=== PATIENT | male | born 1940 | race Two or more races ===

== ENCOUNTER 2021-04-17 19:22 | Emergency (ER) | payer OTHER, MEDICAID ==
[~2021-04-17] VITALS: Ht 180.3 cm; Wt 75.3 kg
[2021-04-17] MEDS ORDERED: NEOMYCIN-BACITRACIN-POLYM UNITDOSE PKG TOP OINT TOP ONE (20:45)
[2021-04-17 20:56] VITALS: BP 126/69
[2021-04-17] MEDS ORDERED: IBUPROFEN 800 MG TAB PO ONE (21:30)
== END 2021-04-17 21:28 | disposition home or self-care (01) ==
LOC: ER 19:22
DX: S62.665A Nondisplaced fracture of distal phalanx of left ring finger, initial encounter for closed fracture (principal); S61.215A Laceration without foreign body of left ring finger without damage to nail, initial encounter; E11.9 Type 2 diabetes mellitus without complications; W23.0XXA Caught, crushed, jammed, or pinched between moving objects, initial encounter; Y93.89 Activity, other specified; Y92.89 Other specified places as the place of occurrence of the external cause; Y99.8 Other external cause status
CPT/HCPCS: 12002

== ENCOUNTER 2024-02-16 17:35 | Inpatient (IN) | payer OTHER, MEDICAID ==
[~2024-02-16] VITALS: Ht 180.3 cm; Wt 72.7 kg
[2024-02-16] MEDS ORDERED: ACETAMINOPHEN 325 MG TAB PO ONE (18:45)
[2024-02-16] MEDS: KETOROLAC TROMETH 30 MG/ML 1ML VIAL IM ONE (18:48)
[2024-02-16 21:41] LABS: Basophils # (auto) 0 10 ^3/uL (0-0.2); Basophils % (auto) 0.5 % (0.0-2.0); Eosinophils # (auto) 0.1 10 ^3/uL (0-0.8); Eosinophils % (auto) 1.1 % (0.0-7.0); Hematocrit 32.6 % (41.0-53.0); Hemoglobin 10.5 g/dL (13.5-17.5); Lymphocytes # (auto) 0.8 10 ^3/uL (0.4-5.4); Lymphocytes % (auto) 13.3 % (10.0-50.0); Mean Corpuscular Hemoglobin 28.4 pg (28.0-32.0); Mean Corpuscular Hgb Conc. 32.1 g/dL (32.0-36.0); Mean Corpuscular Volume 88.4 fL (80.0-100.0); Monocytes # (auto) 0.4 10 ^3/uL (0-1.3); Monocytes % (auto) 6.3 % (0.0-12.0); Neutrophils % (auto) 78.8 % (37.0-80.0); Red Blood Cells 3.69 10^6/uL (4.5-5.90); Red Cell Distribution Width 15.1 % (11.8-14.3); White Blood Cell 6.4 10^3/uL (4.4-10.8)
[2024-02-16 21:59] LABS: Alanine Aminotransferase 11 U/L (7-40); Albumin 4.2 g/dL (3.2-4.8); Alkaline Phosphatase 83 U/L (46-116); Anion Gap 8 (5-15); Aspartate Aminotransferase 21 U/L (13-40); BUN/Creatinine Ratio 16.4 (10.0-20.0); Blood Urea Nitrogen 19 mg/dL (9-23); Calcium 9.5 mg/dL (8.5-10.1); Carbon Dioxide 27 mmol/L (20-30); Chloride 105 mmol/L (98-107); Glucose 170 mg/dL (74-106); Potassium 4.2 mmol/L (3.5-5.1); Sodium 140 mmol/L (136-145)
[2024-02-16 22:00] LABS: Bilirubin, Total 0.4 mg/dL (0.2-1.0); Total Protein 6.8 g/dL (5.7-8.2)
[2024-02-17] VITALS (7 sets, daily range): BP systolic 98–137; BP diastolic 52–70; PULSE 64–77; RESP 16–17; TEMP 97.3–98.3; O2SAT 90–94
[2024-02-17] MEDS ORDERED: NITROGLYCERIN 0.4 MG SL TAB SL PRN
[2024-02-17] MEDS ORDERED: ONDANSETRON HCL 4 MG/2 ML VIAL IV PRN
[2024-02-17] MEDS ORDERED: DEXTROSE (50%) 50ML SYRG IV PRN
[2024-02-17] MEDS ORDERED: DOCUSATE SOD 100 MG CAP PO PRN
[2024-02-17] MEDS: ACCU-CHEK COMFORT CURVE STRIP VI SCH (06:06)
[2024-02-17] MEDS: InsuLIN REG 1unit/0.01ml Soln (100units/ml) SC SCH (06:08)
[2024-02-17 06:52] LABS: Anion Gap 8 (5-15); Carbon Dioxide 28 mmol/L (20-30); Chloride 105 mmol/L (98-107); Potassium 4.1 mmol/L (3.5-5.1); Sodium 141 mmol/L (136-145)
[2024-02-17 06:53] LABS: Calcium 9.1 mg/dL (8.5-10.1)
[2024-02-17 06:58] LABS: BUN/Creatinine Ratio 18.9 (10.0-20.0); Blood Urea Nitrogen 23 mg/dL (9-23); Glucose 182 mg/dL (74-106)
[2024-02-17 07:01] LABS: Basophils # (auto) 0 10 ^3/uL (0-0.2); Basophils % (auto) 0.5 % (0.0-2.0); Eosinophils # (auto) 0.1 10 ^3/uL (0-0.8); Eosinophils % (auto) 1.6 % (0.0-7.0); Hematocrit 29.5 % (41.0-53.0); Hemoglobin 9.5 g/dL (13.5-17.5); Lymphocytes # (auto) 0.8 10 ^3/uL (0.4-5.4); Lymphocytes % (auto) 14.7 % (10.0-50.0); Mean Corpuscular Hemoglobin 28.5 pg (28.0-32.0); Mean Corpuscular Hgb Conc. 32.2 g/dL (32.0-36.0); Mean Corpuscular Volume 88.3 fL (80.0-100.0); Monocytes # (auto) 0.5 10 ^3/uL (0-1.3); Neutrophils # (auto) 4.3 10 ^3/uL (1.6-8.6); Neutrophils % (auto) 75.2 % (37.0-80.0); Nucleated Red Blood Cells % 0.1 %; Red Blood Cells 3.34 10^6/uL (4.5-5.90); Red Cell Distribution Width 14.9 % (11.8-14.3); White Blood Cell 5.7 10^3/uL (4.4-10.8)
[2024-02-17] MEDS: ENOXAPARIN SOD 40 MG/0.4 ML SYRINGE SC SCH (08:33)
[2024-02-17] MEDS: ACETAMINOPHEN 325 MG TAB PO PRN (10:52)
[2024-02-17] MEDS ORDERED: METF-370 PO (11:47)
[2024-02-17] MEDS ORDERED: ATOR20TA50 PO (11:54)
[2024-02-17] MEDS ORDERED: PANT40TA2 PO (11:54)
[2024-02-17] MEDS ORDERED: ASPI-543 PO (11:54)
[2024-02-17] MEDS ORDERED: BENZ200C64 PO (11:54)
[2024-02-17] MEDS ORDERED: CANA300T OR (11:54)
[2024-02-17] MEDS ORDERED: SERT-377 PO (11:54)
[2024-02-17] MEDS ORDERED: CHOL500033 PO (11:54)
[2024-02-17] MEDS ORDERED: LORA-622 PO (11:54)
[2024-02-17] MEDS ORDERED: BUDE1AER4 IN (11:54)
[2024-02-17] MEDS ORDERED: MORPHINE SULFATE INJ 2 MG/ml SYRG IV PRN ×2 (13:15)
[2024-02-17] MEDS: HYDROcodone-ACET 5/325MG TAB PO PRN (17:56)
[2024-02-18 05:00] VITALS: BP 144/69; PULSE 62; RESP 18; TEMP 97.6; O2SAT 94
[2024-02-18 06:11] LABS: Chloride 107 mmol/L (98-107); Potassium 3.9 mmol/L (3.5-5.1); Sodium 141 mmol/L (136-145)
[2024-02-18 06:12] LABS: Anion Gap 7 (5-15); Calcium 8.6 mg/dL (8.7-10.4); Carbon Dioxide 27 mmol/L (20-30)
[2024-02-18 06:17] LABS: BUN/Creatinine Ratio 23.1 (10.0-20.0); Blood Urea Nitrogen 21 mg/dL (9-23); Glucose 125 mg/dL (74-106)
[2024-02-18 06:23] LABS: Basophils # (auto) 0 10 ^3/uL (0-0.2); Basophils % (auto) 0.7 % (0.0-2.0); Eosinophils # (auto) 0.2 10 ^3/uL (0-0.8); Hematocrit 29.5 % (41.0-53.0); Hemoglobin 9.6 g/dL (13.5-17.5); Lymphocytes # (auto) 0.8 10 ^3/uL (0.4-5.4); Lymphocytes % (auto) 21.3 % (10.0-50.0); Mean Corpuscular Hemoglobin 28.5 pg (28.0-32.0); Mean Corpuscular Hgb Conc. 32.4 g/dL (32.0-36.0); Monocytes # (auto) 0.3 10 ^3/uL (0-1.3); Monocytes % (auto) 7.2 % (0.0-12.0); Neutrophils # (auto) 2.6 10 ^3/uL (1.6-8.6); Neutrophils % (auto) 65.8 % (37.0-80.0); Nucleated Red Blood Cells % 0.1 %; Red Blood Cells 3.35 10^6/uL (4.5-5.90); Red Cell Distribution Width 14.8 % (11.8-14.3)
[2024-02-18 07:30] VITALS: PULSE 62
[2024-02-18 08:38] VITALS: BP 118/57; PULSE 63; RESP 16; TEMP 97.4; O2SAT 92
[2024-02-18 13:00] VITALS: BP 110/64; PULSE 80; RESP 18; TEMP 97.3; O2SAT 97
[2024-02-18 17:00] VITALS: BP 130/68; PULSE 62; RESP 18; TEMP 97.9; O2SAT 95
[2024-02-18 17:23] VITALS: BP 130/68; PULSE 62; RESP 18; TEMP 97.9; O2SAT 95
== END 2024-02-18 18:50 | disposition home health service (06) | DRG 556 ==
LOC: ER 17:35 → TELE-EAST 23:57 → TELE 23:57 → TELE-EAST 02-17 03:00
PROVIDERS: ADMIT Nurse Practitioner Family; ATTEND Nurse Practitioner Family
DX: M79.18 Myalgia, other site (principal); I31.39 Other pericardial effusion (noninflammatory); I10 Essential (primary) hypertension; E11.9 Type 2 diabetes mellitus without complications; I25.10 Atherosclerotic heart disease of native coronary artery without angina pectoris; E78.5 Hyperlipidemia, unspecified; R09.89 Other specified symptoms and signs involving the circulatory and respiratory systems; Z79.899 Other long term (current) drug therapy; Z79.4 Long term (current) use of insulin; W01.0XXA Fall on same level from slipping, tripping and stumbling without subsequent striking against object, initial encounter; Y93.89 Activity, other specified; Y92.002 Bathroom of unspecified non-institutional (private) residence as the place of occurrence of the external cause; Y99.8 Other external cause status
CPT/HCPCS: 36415; 70450; 71250; 72125; 74176; 80048; 80053; 82962; 83880; 84484; 85025; 93005; 93306; G0378; J1815; J1885